=== PATIENT | female | born 1990 | race Two or more races ===

== ENCOUNTER 2017-01-06 21:38 | Emergency (ER) | payer MEDICAID, OTHER ==
[~2017-01-06] VITALS: Ht 170.2 cm; Wt 54.4 kg
[2017-01-07 03:27] VITALS: BP 132/86
== END 2017-01-07 02:24 | disposition home or self-care (01) ==
LOC: ER 21:44
DX: F41.9 Anxiety disorder, unspecified (principal); F17.210 Nicotine dependence, cigarettes, uncomplicated; F15.10 Other stimulant abuse, uncomplicated
CPT/HCPCS: 36415; 80320; 84702; 99284; G0434